=== PATIENT | male | born 1950 | race Hispanic/Latino ===

== ENCOUNTER → 2023-09-15 | Outpatient (CLI) | payer OTHER ==
[~2023-09-15] MED LIST: AEC81 PO; AMLO-258 PO; ATOR40TA71 PO; CLOP75TA32 PO; ISOS30TA92 PO; LABE100T7 PO; TELM1TAB42 PO
[2023-09-15 13:05] LABS: CREATININE 1.1 mg/dL (0.5-1.3); POTASSIUM 4.5 mmol/L (3.5-5.1)
== END | disposition home or self-care (01) ==
LOC: LAB 09:16
PROVIDERS: ATTEND Internal Medicine Cardiovascular Disease
DX: I25.10 Atherosclerotic heart disease of native coronary artery without angina pectoris (principal)
CPT/HCPCS: 36415; 80048; 80061